=== PATIENT | male | born 1985 | race Caucasian/White ===

== ENCOUNTER 2017-01-24 12:00 | Emergency (ER) | payer SELFPAY ==
[2017-01-24] MEDS ORDERED: Lidocaine 1% 20 ML MDV INJECT ONE (12:18)
[2017-01-24] MEDS ORDERED: Bacitracin Oint 1 GM U/D Packet TOP ONE (12:18)
[2017-01-24] MEDS ORDERED: Diphtheria,Pertussis(Acell),Tetanus Vaccine 0.5 ML Syringe IM ONE (12:22)
--- NOTE | 2017-01-24 12:46 | EDM.PDOC ---
ED HPI Skin/Rash - General Chief Complaint: Laceration Stated Complaint: CUT ON LT HAND Time Seen by Provider: 01/24/17 12:10 Source: Reports: Patient History Limitations: Reports: No limitations - History of Present Illness INITIAL COMMENTS - FREE TEXT/NARRATIVE: HISTORY AND PHYSICAL: History of present illness: [Comes to the emergency room for evaluation of a laceration over his left hand. He was trying to strip some copper from a pipe with his pocket knife when the knife slipped cutting into the palm of his left hand. Had quite a bit of bleeding at the time, applied a dressing and came to the ER for evaluation. He denies numbness and tingling. He has full range of motion of all of his digits. States that his fingers and thumb feel cold. Cannot remember the date of his last tetanus shot. He has no other complaints or concerns at this time. No previous injury or surgery to his left hand. Injury occurred at work at [employer].] Review of systems: As per history of present illness and below otherwise all systems reviewed and negative. Past medical history: As per history of present illness and as reviewed below otherwise noncontributory. Surgical history: As per history of present illness and as reviewed below otherwise noncontributory. Social history: No reported history of drug or alcohol abuse. Family history: As per history of present illness and as reviewed below otherwise noncontributory. Physical exam: HEENT: Atraumatic, normocephalic. Extremities: 4 cm linear laceration to the palm of his left hand over the thenar eminence. Neurovascular is intact. He has full range of motion to his wrist, thumb, and fingers. Strength is 5 out of 5 against resistance. negative for cords or calf pain. Neurovascular unremarkable. Neuro: Awake, alert, oriented. Cranial nerves II through XII unremarkable. Cerebellum unremarkable. Motor and sensory unremarkable throughout. Exam nonfocal. Diagnostics: [L hand x-ray] Impression: [L palm laceration] Plan: [See procedure note. Return to ER in 7 days to have sutures removed. All questions are answered and concerns are addressed. ] Definitive disposition and diagnosis as appropriate pending reevaluation and review of above. - Related Data Allergies Allergy/AdvReac Type Severity Reaction Status Date / Time No Known Allergies Allergy Verified 01/24/17 12:09 Home Meds: Ambulatory Orders Medication Instructions Recorded Confirmed . [No Known Home Meds] 01/24/17 01/24/17 Past Medical History - Past Health History Medical/Surgical History: Denies Medical/Surgical History Social & Family History - Family History Family Medical History: Noncontributory - Tobacco Use Smoking Status *Q: Never Smoker - Caffeine Use Caffeine Use: Reports: Soda Other Caffeine Use: 1 can - Recreational Drug Use Recreational Drug Use: No ED ROS GENERAL - Review of Systems Review Of Systems: ROS reveals no pertinent complaints other than HPI. ED EXAM, SKIN/RASH Exam: See Below ED SKIN PROCEDURES - Laceration/Wound Repair Left Hand Lac/wound length in cm: 4 Appearance: subcutaneous Distal NVT: neuro & vascular intact, no tendon injury Anesthetic type: local Local anesthesia - Lidocaine (Xylocaine): 1% plain Local anesthetic volume: other (6mL) Skin prep: chlorhexidine (hibiciens), providone-iodine (betadine), saline Exploration/Debridement/Repair: wound explored, in a bloodless field Closed with: sutures Suture size: 4-0 # of sutures: 8 Suture type: nylon Drain placement: No Sterile dressing applied: nurse Tetanus status addressed: Yes Complications: No Progress/Comments: Pt tolerated well Course - Vital Signs Last Recorded V/S: Last Vital Signs Temp 98.9 F 01/24/17 12:09 Pulse 54 L 01/24/17 12:09 Resp 16 01/24/17 12:09 BP 141/110 H 01/24/17 12:09 Pulse Ox 99 01/24/17 12:09 - Orders/Labs/Meds Orders: Active Orders 24 hr Category Date Time Status Vaccines to be Administered [RC] PER UNIT ROUTINE Care 01/24/17 12:22 Active Hand 2V Lt [CR] Stat Exams 01/24/17 12:25 Taken Meds: Medications Discontinued Medications Generic Name Dose Route Start Last Admin Trade Name Freq PRN Reason Stop Dose Admin Bacitracin 1 dose 01/24/17 12:18 01/24/17 12:57 Bacitracin Oint 1 Gm TOP 01/24/17 12:19 1 dose ONETIME ONE Administration Diphtheria/Tetanus/Acell Pertussis 0.5 ml 01/24/17 12:22 01/24/17 12:57 Adacel IM 01/24/17 12:23 0.5 ml .ONCE ONE Administration Lidocaine HCl 20 ml 01/24/17 12:18 01/24/17 12:58 Xylocaine 1% INJECT 01/24/17 12:19 20 ml ONETIME ONE Administration Departure - Departure Time of Disposition: 13:35 Disposition: Home, Self-Care 01 Condition: good Clinical Impression: Laceration of left hand Qualifiers: Encounter type: initial encounter Foreign body presence: without foreign body Qualified Code(s): S61.412A - Laceration without foreign body of left hand, initial encounter Instructions: Laceration Care, Adult Referrals: PCP,None [Primary Care Provider] - Forms: ED Department Discharge Additional Instructions: The following information is given to patients seen in the emergency department who are being discharged to home. This information is to outline your options for follow-up care. We provide all patients seen in our emergency department with a follow-up referral. The need for follow-up, as well as the timing and circumstances, are variable depending upon the specifics of your emergency department visit. If you don't have a primary care physician on staff, we will provide you with a referral. We always advise you to contact your personal physician following an emergency department visit to inform them of the circumstance of the visit and for follow-up with them and/or the need for any referrals to a consulting specialist. The emergency department will also refer you to a specialist when appropriate. This referral assures that you have the opportunity for follow-up care with a specialist. All of these measure are taken in an effort to provide you with optimal care, which includes your follow-up. Under all circumstances we always encourage you to contact your private physician who remains a resource for coordinating your care. When calling for follow-up care, please make the office aware that this follow-up is from your recent emergency room visit. If for any reason you are refused follow-up, please contact the [facility] emergency department at and asked to speak to the emergency department charge nurse. [facility] [address] [place] [phone] Followup with primary care provider in 48-72 hours. Return to ER for suture removal in one week. Tylenol or ibuprofen as needed for discomfort. Return to ER as needed and as discussed. - My Orders Last 24 Hours: My Active Orders 01/24/17 12:22 Vaccines to be Administered [RC] PER UNIT ROUTINE 01/24/17 12:25 Hand 2V Lt [CR] Stat - Assessment/Plan Last 24 Hours: My Active Orders 01/24/17 12:22 Vaccines to be Administered [RC] PER UNIT ROUTINE 01/24/17 12:25 Hand 2V Lt [CR] Stat
[2017-01-24 13:50] VITALS: BP 138/98
--- NOTE | 2017-01-26 10:29 | CR ---
EXAM DATE: 01/24/17 PATIENT'S AGE: 31 Patient: SHANNON NEWMAN Facility: [place], [place] Site . Site : 1985 Study: XRay Extremity Left [id number] 12:41:18 PM Ordering Physician: Doctor Cantu Final Report: Indication: Injury, laceration. Findings: The soft tissue structures are intact. No radiopaque foreign body is identified. Bony mineralization is normal. No fracture nor dislocation is identified. The joint spaces are preserved. Impression: 1. No radiopaque foreign body. 2. No underlying osseous or joint abnormality left hand. Dictated by Yari Sylvester MD @ Jan 24 2017 1:16PM (Electronic Signature) Report Signed by Proxy and Original Signed Document filed in the Medical Record. [facility]
== END 2017-01-24 13:49 | disposition home or self-care (01) ==
LOC: MW.ED 12:00
DX: S61.412A Laceration without foreign body of left hand, initial encounter (principal); Z23 Encounter for immunization; W26.0XXA Contact with knife, initial encounter
CPT/HCPCS: 12002; 73120-26-LT; 73120-LT; 90471; 90715; 99282; 99283-25

== ENCOUNTER 2017-01-31 12:58 | Emergency (ER) | payer SELFPAY ==
--- NOTE | 2017-01-31 13:44 | EDM.PDOC ---
ED HPI Skin/Rash - General Chief Complaint: Wound Recheck Stated Complaint: TO GET STICHES OUT Time Seen by Provider: 01/31/17 13:40 Source: Reports: Patient History Limitations: Reports: No limitations - History of Present Illness INITIAL COMMENTS - FREE TEXT/NARRATIVE: History of present illness: [] Patient arrives for suture removal of a left hand laceration and I was asked to evaluate the wound by nursing. Review of systems: As per history of present illness and below otherwise all systems reviewed and negative. Past medical history: As per history of present illness and as reviewed below otherwise noncontributory. Surgical history: As per history of present illness and as reviewed below otherwise noncontributory. Social history: No reported history of drug or alcohol abuse. Family history: As per history of present illness and as reviewed below otherwise noncontributory. Physical exam: General: Well developed, well nourished in NAD HEENT: Atraumatic, normocephalic, pupils reactive, negative for conjunctival pallor or scleral icterus, mucous membranes moist, throat clear, neck supple, nontender, trachea midline. Lungs: Clear to auscultation, breath sounds equal bilaterally, chest nontender. Heart: S1S2, regular, negative for clicks, rubs, or JVD. Abdomen: Soft, nondistended, nontender. Negative for masses or hepatosplenomegaly. Negative for costovertebral tenderness. Pelvis: Stable nontender. Genitourinary: Deferred. Rectal: Deferred. Extremities: Sutures in place in left thenar eminence without signs of infection wound healing well., negative for cords or calf pain. Neurovascular unremarkable. Neuro: Awake, alert, oriented. Cranial nerves II through XII unremarkable. Cerebellum unremarkable. Motor and sensory unremarkable throughout. Exam nonfocal. Diagnostics: [] Therapeutics: [] Impression: [] Wound check and suture removal Plan: [] Followup as needed Definitive disposition and diagnosis as appropriate pending reevaluation and review of above. - Related Data Allergies Allergy/AdvReac Type Severity Reaction Status Date / Time No Known Allergies Allergy Verified 01/31/17 13:35 Home Meds: Ambulatory Orders Medication Instructions Recorded Confirmed . [No Known Home Meds] 01/24/17 01/31/17 Past Medical History - Past Health History Medical/Surgical History: Denies Medical/Surgical History Social & Family History - Family History Family Medical History: Noncontributory - Tobacco Use Smoking Status *Q: Never Smoker - Caffeine Use Caffeine Use: Reports: Soda Other Caffeine Use: 1 can - Recreational Drug Use Recreational Drug Use: No ED ROS GENERAL - Review of Systems Review Of Systems: See Below (See history of present illness) ED EXAM, SKIN/RASH Exam: See Below (See history of present illness) Departure - Departure Time of Disposition: 13:43 Disposition: Home, Self-Care 01 Condition: good Clinical Impression: Encounter for re-check of laceration wound Forms: ED Department Discharge Additional Instructions: The following information is given to patients seen in the emergency department who are being discharged to home. This information is to outline your options for follow-up care. We provide all patients seen in our emergency department with a follow-up referral. The need for follow-up, as well as the timing and circumstances, are variable depending upon the specifics of your emergency department visit. If you don't have a primary care physician on staff, we will provide you with a referral. We always advise you to contact your personal physician following an emergency department visit to inform them of the circumstance of the visit and for follow-up with them and/or the need for any referrals to a consulting specialist. The emergency department will also refer you to a specialist when appropriate. This referral assures that you have the opportunity for follow-up care with a specialist. All of these measure are taken in an effort to provide you with optimal care, which includes your follow-up. Under all circumstances we always encourage you to contact your private physician who remains a resource for coordinating your care. When calling for follow-up care, please make the office aware that this follow-up is from your recent emergency room visit. If for any reason you are refused follow-up, please contact the [facility] Department at and asked to speak to the emergency department charge nurse. [facility] [address] [place] [phone]
[2017-01-31 13:45] VITALS: BP 132/64
== END 2017-01-31 13:45 | disposition home or self-care (01) ==
LOC: MW.ED 12:58
DX: S61.412D Laceration without foreign body of left hand, subsequent encounter (principal); X58.XXXD Exposure to other specified factors, subsequent encounter
CPT/HCPCS: 99281